=== PATIENT | female | born 1935 ===

== ENCOUNTER 2023-05-31 05:25 | Day surgery (SDC) | payer OTHER ==
[~2023-05-31 05:25] MED LIST: GLIPIZIDE XL5 MG; METFORMIN HCL500 M3; METROPOLO; NEURONTIN300 MG
[2023-05-31] MEDS ORDERED: CEFAZOLIN SODIUM 1,000 MG VIAL ONE (06:33)
[2023-05-31] MEDS ORDERED: BACITRACIN 28.35 GM OINT.TUBE TOP ONE (07:06)
[2023-05-31] MEDS ORDERED: NEOMYCIN/BACITRACIN/POLYMYXINB 14 G TUBE TOP ONE (08:00)
[2023-05-31] MEDS ORDERED: CEFAZOLIN SODIUM 1,000 MG VIAL IV ONE (08:00)
== END 2023-05-31 11:40 | disposition home or self-care (01) ==
LOC: CIR.AMB 05:25
PROVIDERS: ATTEND Surgery Surgery of the Hand
DX: M67.844 Other specified disorders of tendon, left hand (principal); D21.12 Benign neoplasm of connective and other soft tissue of left upper limb, including shoulder